=== PATIENT | male | born 1970 | race Caucasian/White ===

== ENCOUNTER 2016-12-01 23:37 | Emergency (ER) | payer SELFPAY ==
[~2016-12-01] VITALS: Ht 188 cm; Wt 74.0 kg
[~2016-12-01 23:37] MED LIST: Z.0.NO CURRENT MEDS
[2016-12-01 23:39] VITALS: BP 113/79; PULSE 86; RESP 16; TEMP 98.2; O2SAT 96
[2016-12-02] MEDS ORDERED: SULFAMETHOXAZOLE-TRIMETHOPRIM DS 800-160 MG TAB PO ONE (01:15)
[2016-12-02] MEDS ORDERED: ceFAZolin 2 GM PREMIX 50 ML IV ONE (01:15)
[2016-12-02] MEDS ORDERED: CLINDAMYCIN INJ 600 MG in SODIUM CHLORIDE 0.9% INJ 100 ML IV ONE (01:15)
[2016-12-02] MEDS ORDERED: DIPHTH/TETANUS/ACEL PERTUSSIS (BOOSTER) 0.5 ML VIAL/PFS IM ONE (01:15)
[2016-12-02 01:36] LABS: BASOPHIL % 0.3 % (0.0-2.0); EOSINOPHIL # 0.1 TH/MM3 (0-0.4); EOSINOPHIL % 0.7 % (0.0-4.0); HEMATOCRIT 40.6 % (39.0-51.0); HEMO FLAGS DIFF FINAL; LYMPH % 26.6 % (9.0-44.0); LYMPHOCYTE # 2.7 TH/MM3 (1.0-4.8); MEAN CELL VOLUME 92.5 FL (80.0-100.0); MEAN CORPUSCULAR HEMOGLOBIN 31.7 PG (27.0-34.0); MEAN CORPUSCULAR HGB CONC 34.3 % (32.0-36.0); MONO % 12.4 % (0.0-8.0); PLATELET COUNT 197 TH/MM3 (150-450); RED BLOOD COUNT 4.38 MIL/MM3 (4.50-5.90); RED CELL DISTRIBUTION WIDTH 14.7 % (11.6-17.2)
--- NOTE | 2016-12-02 01:41 | PD ---
HPI Chief Complaint: Skin Problem Time Seen by Provider: 00:38 Travel History International Travel<30 days: No Contact w/Intl Traveler<30days: No Traveled to known affect area: No History of Present Illness HPI The patient is a 46 year old male who presents to the [facility] emergency department with a history of developing a bump on the medial aspect of the right calf 4 days ago. He reports that with time the bump opened up and began to drain an area of redness around it worsened. He reports that in September he had a skin infection and had a leftover half of the prescription for Bactrim. He reports that he started this back up again a couple of days ago. He reports that he is currently homeless. 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 He reports that he also has dry skin in between his fingers that frequently cracks. The patient reports that he noticed a new bump that is similar along the anterior left thigh, and one along the right wrist ulnar aspect. He denies having a primary care physician. He denies having any known fevers. He denies having any nausea, vomiting, or diarrhea. The patient denies any cough, congestion, neck pain, chest pain, shortness of breath, abdominal pain, urinary symptoms, or neurologic symptoms. Tetanus is reportedly not up to date. [facility] Past Medical History Narrative Medical The patient's past medical history is significant for a history of recurrent skin infections, history of COPD, history of tobacco abuse, history of daily alcohol use. Blood Disorders: No Cancer: No Cardiovascular Problems: No COPD: Yes Endocrine: No Genitourinary: No Immune Disorder: No Musculoskeletal: No Neurologic: No Psychiatric: No Reproductive: No Respiratory: Yes Immunizations Current: Yes Tetanus Vaccination: Unknown Influenza Vaccination: No Past Surgical History Narrative Surgical The patient's past surgical history is significant for wrist, knee, ankle surgery, tonsillectomy. Tonsillectomy: Yes Social History Alcohol Use: Yes (Beer, 4-6cans/day) Tobacco Use: Yes (1 PK Per day) Substance Use: Yes (marijuana, occasional, 2 days) Allergies-Medications (Allergen,Severity, Reaction): Coded Allergies: Codeine (Verified Allergy, Mild, 12/02/16) Reported Meds & Prescriptions Reported Meds & Active Scripts Active Clindamycin (Clindamycin HCl) 300 Mg Cap 300 Mg PO TID Doxycycline Hyclate 100 Mg Cap 100 Mg PO BID Reported No Current Meds (Miscellaneous Medication) Misc Review of Systems Except as stated in HPI: all other systems reviewed are Neg General / Constitutional: No: Fever Eyes: No: Visual changes HENT: No: Headaches Cardiovascular: No: Chest Pain or Discomfort Respiratory: No: Shortness of Breath Gastrointestinal: No: Abdominal Pain Genitourinary: No: Dysuria Musculoskeletal: No: Pain Skin: Positive Rash Neurologic: No: Weakness Psychiatric: No: Depression Endocrine: No: Polydipsia Hematologic/Lymphatic: No: Easy Bruising Physical Exam Narrative General: The patient is a well-developed well-nourished male in no acute distress. Head and Neck exam: Head is normocephalic atraumatic. Eyes: Pupils are equal round and reactive to light. Nose: Midline septum with pink mucous membranes Mouth: Dentition unremarkable. Moist mucus membranes. Posterior oropharynx is slightly erythematous. No tonsillar hypertrophy. Uvula midline. Airway patent. Neck: No palpable lymphadenopathy. No nuchal rigidity. No thyromegaly. Cardiovascular: Regular rate and rhythm without murmurs, gallops, or rubs. No pulse deficit to the extremities. Lungs: Clear to auscultation bilaterally. No wheezes, rhonchi, or rales. Abdomen: Soft, without tenderness to palpation in all 4 quadrants of the abdomen. No guarding, rebound, or rigidity. Normal bowel sounds are audible. Extremities: No clubbing or cyanosis. The patient on examination of the right lower extremity has an area along the medial aspect of the right calf with a central erythematous papule with central ulceration and weeping. This is a clear drainage. This was cultured. There is a surrounding area of erythema, induration. There is no step-off or crepitus. This is approximately 10 cm in greatest dimension. The patient has a smaller erythematous papule that is noted noted along the left anterior thigh. This is crusted over. This is approximately 2 cm in greatest dimension. The patient additionally on the ulnar aspect of the right wrist is noted to have an erythematous papular is approximately 1 cm. On examination of bilateral hands the patient has dry cracked skin in between the fingers related to chemical exposures. No drainage is noted from the sites on his hands. Back: No spinous process tenderness to palpation. No costovertebral angle tenderness to palpation. Neurologic Exam: Grossly nonfocal. Data Data Last Documented VS Vital Signs Date Time Temp Pulse Resp B/P Pulse Ox O2 Delivery O2 Flow Rate FiO2 12/02/16 00:26 86 16 12/01/16 23:39 98.2 113/79 96 Room Air Orders Complete Blood Count With Diff (12/02/16 01:08) Basic Metabolic Panel (Bmp) (12/02/16 01:08) Wound Culture And Gram Stain (12/02/16 01:08) Iv Access Insert/Monitor (12/02/16 01:08) Ecg Monitoring (12/02/16 01:08) Oximetry (12/02/16 01:08) Cefazolin 2 Gm Premix (Ancef 2 Gm Premix (12/02/16 01:15) Ocmf-Ual-Ptdoqb (Booster) Inj (Boostrix (12/02/16 01:15) Sulfamet-Trimeth Ds 800-160 Mg (Bactrim (12/02/16 01:15) Clindamycin Inj (Cleocin Inj) (12/02/16 01:15) Wound Care (12/02/16 01:18) Labs Laboratory Tests Test 12/02/16 01:25 White Blood Count 10.0 TH/MM3 Red Blood Count 4.38 MIL/MM3 Hemoglobin 13.9 GM/DL Hematocrit 40.6 % Mean Corpuscular Volume 92.5 FL Mean Corpuscular Hemoglobin 31.7 PG Mean Corpuscular Hemoglobin 34.3 % Concent Red Cell Distribution Width 14.7 % Platelet Count 197 TH/MM3 Mean Platelet Volume 8.3 FL Neutrophils (%) (Auto) 60.0 % Lymphocytes (%) (Auto) 26.6 % Monocytes (%) (Auto) 12.4 % Eosinophils (%) (Auto) 0.7 % Basophils (%) (Auto) 0.3 % Neutrophils # (Auto) 6.0 TH/MM3 Lymphocytes # (Auto) 2.7 TH/MM3 Monocytes # (Auto) 1.2 TH/MM3 Eosinophils # (Auto) 0.1 TH/MM3 Basophils # (Auto) 0.0 TH/MM3 CBC Comment DIFF FINAL Differential Comment Sodium Level 135 MEQ/L Potassium Level 3.7 MEQ/L Chloride Level 100 MEQ/L Carbon Dioxide Level 21.7 MEQ/L Anion Gap 13 MEQ/L Blood Urea Nitrogen 6 MG/DL Creatinine 0.72 MG/DL Estimat Glomerular Filtration 117 ML/MIN Rate Random Glucose 74 MG/DL Calcium Level 7.9 MG/DL MDM Medical Decision Making Medical Screen Exam Complete: Yes Emergency Medical Condition: Yes Medical Record Reviewed: Yes Interpretation(s) Laboratory Tests Test 12/02/16 01:25 White Blood Count 10.0 TH/MM3 Red Blood Count 4.38 MIL/MM3 Hemoglobin 13.9 GM/DL Hematocrit 40.6 % Mean Corpuscular Volume 92.5 FL Mean Corpuscular Hemoglobin 31.7 PG Mean Corpuscular Hemoglobin 34.3 % Concent Red Cell Distribution Width 14.7 % Platelet Count 197 TH/MM3 Mean Platelet Volume 8.3 FL Neutrophils (%) (Auto) 60.0 % Lymphocytes (%) (Auto) 26.6 % Monocytes (%) (Auto) 12.4 % Eosinophils (%) (Auto) 0.7 % Basophils (%) (Auto) 0.3 % Neutrophils # (Auto) 6.0 TH/MM3 Lymphocytes # (Auto) 2.7 TH/MM3 Monocytes # (Auto) 1.2 TH/MM3 Eosinophils # (Auto) 0.1 TH/MM3 Basophils # (Auto) 0.0 TH/MM3 CBC Comment DIFF FINAL Differential Comment Sodium Level 135 MEQ/L Potassium Level 3.7 MEQ/L Chloride Level 100 MEQ/L Carbon Dioxide Level 21.7 MEQ/L Anion Gap 13 MEQ/L Blood Urea Nitrogen 6 MG/DL Creatinine 0.72 MG/DL Estimat Glomerular Filtration 117 ML/MIN Rate Random Glucose 74 MG/DL Calcium Level 7.9 MG/DL Differential Diagnosis Staph scalded skin syndrome, versus MRSA, versus cellulitis, versus Lyme disease Narrative Course During the course of the patients emergency department visit, the patients history, examination, and differential diagnosis were reviewed with the patient. The patient had IV access obtained and blood work sent for analysis. The patient was placed on a cardiac monitor technician with oximetry and blood pressure monitoring. The patient was provided clindamycin 600 mg IV, Ancef 2 g IV. The patient's right leg wound will be cleaned, antibiotic ointment applied, and dressed. The patient had his tetanus updated. The patients laboratory studies were reviewed and remarkable for white count 10 , hemoglobin 13.9, platelets 197 with 12.4 monos, BNP is remarkable for sodium of 135, BUN 6, calcium 7.9 The patient is instructed to discontinue the Bactrim that he was previously taken. The patient was given a prescription for clindamycin and doxycycline. The patient is instructed to have his wounds, infection rechecked in 2 days. The patient was instructed regarding following up with patient assistance and the [facility], however if he is unable to follow-up as an outpatient and can follow-up in the emergency department for reexamination. The patient is resting comfortably and feels better, is alert and in no distress. The patients results and examination findings were discussed with the patient. The repeat examination is unremarkable and benign. The history, exam, diagnostic testing, and current condition do not suggest any significant pathology to warrant further testing, continued ED treatment, admission, or surgical evaluation at this point. The vital signs have been stable. The patient does not have uncontrollable pain, intractable vomiting, or other significant symptoms. The patient's condition is stable and appropriate for discharge. The patient will pursue further outpatient evaluation with a primary care physician or other designated or consulting physician as indicated in the discharge instructions. The patient expressed understanding and was agreeable with this plan. Diagnosis Primary Impression: Cellulitis Qualified Code: L03.115 - Cellulitis of right lower extremity Additional Impression: Rash Referrals: [facility] Patient Assistance Program Patient Instructions: Cellulitis (ED), General Instructions Additional Instructions: If you are unable to follow-up with the doctor as an outpatient, follow back up in the emergency department for reexamination of the infection in 2 days. Discontinue the Bactrim and start the 2 new prescriptions. Med/Other Pt SpecificInfo: Prescription(s) given, Med Stopped Scripts Clindamycin 300 Mg [id number] Mg PO TID #30 CAP Ref 0 Prov:Penelope Julian MD 12/02/16 Doxycycline Hyclate 100 Mg [id number] Mg PO BID #20 CAP Ref 0 Prov:Penelope Julian MD 12/02/16 Disposition: DISCHARGE HOME Condition: Stable Penelope Julian MD Dec 02, 2016 01:41
[2016-12-02 02:08] LABS: BICARBONATE 21.7 MEQ/L (21.0-32.0); POTASSIUM 3.7 MEQ/L (3.5-5.1)
[2016-12-02] MEDS ORDERED: CLIN1CAP6 PO (02:33)
[2016-12-02] MEDS ORDERED: DOXY100C PO (02:33)
[2016-12-02 03:16] VITALS: BP 156/63
== END 2016-12-02 03:18 | disposition home or self-care (01) ==
LOC: NEPC 23:37
DX: L03.115 Cellulitis of right lower limb (principal); B95.61 Methicillin susceptible Staphylococcus aureus infection as the cause of diseases classified elsewhere; B95.0 Streptococcus, group A, as the cause of diseases classified elsewhere; Z23 Encounter for immunization
CPT/HCPCS: 80048; 85025; 86403; 87070; 87186; 90471; 90715; 96365; 96367; 99283; J0690